=== PATIENT | male | born 1940 | race Caucasian/White ===

== ENCOUNTER 2017-01-06 11:38 | Inpatient (IN) | payer MEDICARE ==
[~2017-01-06] VITALS: Ht 172.7 cm; Wt 82.9 kg
--- NOTE | ~2017-01-06 | ECH ---
Transthoracic Echocardiography Report (TTE) Demographics Patient Name FERNANDA LEDEZMA Date of Study 01/06/2017 Patient Number [id number] Visit Number [id number] Date of 1940 Room Number 309 Accession Number [id number] Gender Male Age 76 year(s) Referring Danica Ruiz Electronic Die Maker Melany Nieto [facility] Physician MD Dalton Sullivan APRN Physician Interpreting Danica Ruiz Customs Agent Physician Supervising Ordering Physician Danica Ruiz MD/MLP Nurse Stress Parquet Floor Layer Conclusions Summary Technically fair exam. The estimated left ventricular ejection fraction is 60-65%. Normal wall motion. Mild left ventricular hypertrophy. The left atrium is moderately dilated by LA volume index measurement. Mild mitral regurgitation by color Doppler. Procedure Type of Study TTE procedure Procedure Date Date: 01/06/2017 Start: 03:22 PM Technical Quality: Fair Indications:Abnormal troponin, Shortness of breath and Atrial fibrillation. Additional Indications:recent knee surgery Appropriate Use Criteria: 9 Height: 66.93 inches Weight: 182.98 pounds BSA: 1.95 m Rhythm: Atrial fibrillation HR: 93 bpm BP: 172/80 mmHg M-Mode/2D Measurements LV Diastolic Dimension: 4.31 cm LV Systolic Dimension: 3.41 cm LV Septum Diastolic: 0.98 cm LV PW Diastolic: 1.14 cm AO Root Dimension: 2.68 cm Cardiac Output: 6.04 l/min LA Dimension: 3.74 cm Cardiac Index: 3.1 l/min*m LA volume index: 47 ml/m LVOT: 1.99 cm RV Base: 3.2 cm LVOT VTI: 20.9 cm RV Mid: 2.3 cm LV Stroke volume: 64.97 ml RV Length: 6.4 cm LV Stroke volume index: 33.32 ml/m TAPSE: 1.6 cm TDI-S': 13 cm/s Doppler Measurements AV Peak Velocity: 1.1 m/s MV Peak E-Wave: 0.83 m/s AV Peak Gradient: 4.84 mmHg MV Peak A-Wave: 0.61 m/s AV Mean Gradient: 4.16 mmHg MV E/A Ratio: 1.35 LVOT Peak Velocity: 1.15 m/s MV P1/2t: 42.8 msec AV Area (Continuity):2.83 cm MV Deceleration Time: 147.4 msec MV Area (PHT): 5.15 cm PV Peak Velocity: 0.98 m/s PV Peak Gradient: 3.88 mmHg RA Area: 17.49 cm Findings Left Ventricle The left ventricle is normal in size . Mild left ventricular hypertrophy. Diastolic function indeterminate due to patient's arrhythmia. Right Ventricle Normal right ventricle structure and function. Left Atrium The left atrium is moderately dilated by LA volume index measurement. Right Atrium Normal right atrial size. Mitral Valve Normal mitral valve structure and function. Mild mitral regurgitation by color Doppler. Aortic Valve The aortic valve is mildly sclerotic. Tricuspid Valve Normal appearing tricuspid valve. Trivial tricuspid regurgitation by color Doppler. Pulmonic Valve Normal pulmonic valve structure and function. Pericardial Effusion No evidence of pericardial effusion. Miscellaneous Visualized portions of the aortic root and ascending aorta appear normal in size. Pleural Effusion No evidence of pleural effusion. Contractility Score LV regional wall motion:(0-Non visualized 1-Normal 2-Hypokinesis 3-Akinesis 4-Dyskinesis 5-Aneurysm) Signature
--- NOTE | ~2017-01-06 | DS ---
ADMIT: 01/06/2017 RM/LOC: 420 [facility] MR#: [id number] [address] [address] DARIEN FERNANDA Sullivan [address] [place] [id number] Discharge Summary SEX: M AGE: 76 : 1940 ADMISSION DATE: 01/06/2017 DISCHARGE DATE: 01/12/2017 ADDENDUM: The patient was not discharged on the due to not being accepted by our inpatient rehab unit. He was thought to have improved too much to need their care. He was evaluated by Physical Therapy and Occupational Therapy on the with plans for [facility] or home with Home Health Care pending the PT/OT home safety evaluation. Aquilino Hoffman MD/ ajf JOB #: [id number] CC: Aquilino Hoffman MD, Attending Physician Aquilino Hoffman MD, Family Physician
--- NOTE | 2017-01-08 15:06 | CO ---
ADMIT: 01/06/2017 RM/LOC: 309 [facility] MR#: [id number] [address] [address] MOODY LEDEZMA [address] [place] [address] Consultation SEX: M AGE: 76 : 1940 DATE OF CONSULTATION: 01/06/2017 ATTENDING PHYSICIAN: Aquilino Hoffman CONSULTING PHYSICIAN: Nicola Mishra MD REASON FOR CONSULT: Elevated cardiac biomarkers. HISTORY OF PRESENT ILLNESS: Moody is a 76-year-old gentleman, who says he has a history of coronary disease with previous stents at the [facility] in 2004. He also has a history of TIAs and is on dual antiplatelet therapy. He just underwent left knee replacement, which was an elective procedure in [place] a week ago today. His said postoperatively he did well the first couple days, but he did become more anemic during that hospitalization. It sounds like he also had some delirium and agitation. She said he was given Haldol during that hospitalization, and when she took him home Thursday, he was "a zombie." There was also some question if he was moving his right side appropriately. Regardless he got home and seemed to be improving slightly, although ongoing confusion and worsening shortness of breath. By this morning, they said he had been walking, but he was so short of breath. He could barely go across the room. They went to the emergency room in [place] and was transferred to [place]. In our emergency room, he was noted to be anemic with a hemoglobin of around 8. His troponin was elevated at 7. His AST and ALT are 600 and 400 respectively. His creatinine was up at 1.8, and it was 1.4 when he left [facility]. His CK is 1111 with an MB of 20 that gives him an index of 1.9. His hemoglobin is only 8.0 today. He is not complaining of any anginal-type chest pain. He complains mostly of shortness of breath. He clearly has some confusion that is persisting. PAST MEDICAL HISTORY: ALLERGIES: I do not know of any allergies. HOME MEDICATIONS: Include: 1. Plavix 75 daily. 2. Pantoprazole 40 daily. 3. Aspirin 81 daily. 4. Vitamin D3. 5. Zoloft 100. 6. Atorvastatin 40 daily. 7. Lisinopril 10 daily. 8. Multivitamin daily. 9. PreserVision vitamin daily. 10.Divalproex 500 daily. 11.Latanoprost eye drops. ILLNESSES: Include hypertension, hyperlipidemia, gastroesophageal reflux disease, history of depression, anxiety, coronary artery disease with ADMIT: 01/06/2017 RM/LOC: 309 [facility] MR#: [id number] [address] [address] [place] [address] Consultation SEX: M AGE: 76 : 1940 percutaneous coronary intervention in 2004. He had a recent detached retina over the past year. He has had prior cataracts and questionable recurrent TIAs. PAST SURGICAL HISTORY: Includes his recent left knee replacement. He has had bilateral knee arthroscopies, left rotator cuff, cataract surgeries, right hand surgery, and surgery for retinal detachment. FAMILY HISTORY: His father had an MA around age 60, a sister who had an MA in her 70s. No family history of diabetes. His mother had colon cancer. No family history of stroke. SOCIAL HISTORY: He continues to smoke and has done so for 65 years. He does not follow a special diet. He drinks caffeine, but no alcohol or illicit drug use. He has almost been 50 years. He has 2 children and several foster children over the years. 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 REVIEW OF SYSTEMS: GENERAL: He tires easily. He has had some recent chills. Denies fever, sweats, rash, or weight loss. EYES: Positive for blurry vision, partial vision loss, and cataracts. Denies double vision, or glaucoma. ENT: Positive for hearing loss. Denies problems with nose, mouth or throat. PULMONARY: Positive for emphysema, chronic cough, snores loudly, wakes more than once a night, and fatigued in the morning. Denies sputum production, asthma, emphysema or bronchitis. GASTROINTESTINAL: Positive for heartburn and reflux. Denies difficulty swallowing. No change in bowel habits. Denies dark or bloody stools. No history of ulcers, hiatal hernia, or gallbladder or liver disease. GENITOURINARY: Denies dysuria, hematuria, nocturia, urinary tract infection, or kidney stones. Denies history of renal insufficiency or failure. MUSCULOSKELETAL: Positive for arthritis, gout, muscle, and joint pains. ENDOCRINE: Denies history of thyroid dysfunction or diabetes. HEMATOLOGIC: Denies history of anemia, easy bruising, or cancer. NEUROLOGIC: Positive for history of TIAs. Denies chronic headaches, dizziness, syncope, stroke, seizures or numbness or tingling. PSYCHIATRIC: Positive for depression and anxiety. PHYSICAL EXAMINATION: VITAL SIGNS: His blood pressure is 147/68, his pulse is 90 and regular, respirations are 18 and somewhat labored. He is afebrile. GENERAL: He is clearly has some confusion. His skin color is poor, but his extremities are warm and dry. He does answer my questions appropriately, but very tangential thought process. EYES: Sclerae are clear. No xanthelasmas. ENT: I cannot hear any carotid bruits over his airway sounds and oxygen. I do not appreciate any JVD. HEART: Distant. It sounds regular. I do not appreciate any significant murmurs, rubs, or gallops. ADMIT: 01/06/2017 RM/LOC: 309 [facility] MR#: [id number] [address] [address] MOODY LEDEZMA [facility] [place] [address] Consultation SEX: M AGE: 76 : 1940 CHEST: There are diffuse wheezes throughout. ABDOMEN: Protuberant. There is no organomegaly noted. Nontender to palpation. EXTREMITIES: His left knee is bandaged. There is no significant edema. Distal pulses are decreased. MUSCULOSKELETAL: He has changes of arthritis in his hands, and his left knee is bandaged. PSYCHIATRIC: He does answer simple questions and greets me appropriately, but he does show evidence of transient confusion. LABORATORY DATA: Sodium is 143, potassium 4.6, his BUN is 31 with a creatinine of 1.8. His alkaline phosphatase is 177. His albumin is only 2.4. AST 614, ALT 399. CK is 1111, MB 20.7, and troponin is 7.3. Hemoglobin is 8.0 with a white count of 7.5 and platelet count 344,000. A CT of the chest did not show any evidence of pulmonary emboli. There are no effusions. There are some mild atelectasis. His liver appeared enlarged on CT scan. A 12-lead EKG shows sinus rhythm, but I do not see any acute ischemic EKG changes. IMPRESSION: 1. Possible acute coronary syndrome/non-ST elevation myocardial infarction. 2. Postoperative day #6 status post total left knee surgery. 3. Acute kidney failure. 4. Chronic obstructive pulmonary disease. 5. Tobacco abuse. 6. History of coronary artery disease with previous percutaneous coronary intervention. 7. Probable delirium. 8. Elevated transaminases consistent with probable shock liver. 9. Acute anemia. 10.History of transient ischemic attack. RECOMMENDATIONS: He could have an acute coronary syndrome with his known disease in the midst of multisystem dysfunction. I am not convinced that he had a cardiac event that caused his shock liver. It sounds like he had a complicated hospitalization at [facility] with some delirium ADMIT: 01/06/2017 RM/LOC: 309 [facility] MR#: [id number] [address] [place] [address] [place] [address] MOODY LEDEZMA [address] [place] [address] Consultation SEX: M AGE: 76 : 1940 requiring antipsychotic therapy. His says that he also had episodes of hypotension, and I wonder if that was not the cause of his multi-system dysfunction in the midst of anemia, which led to his shock liver and acute kidney failure. His CK is also markedly elevated, and interestingly, his index is not consistent with an acute coronary syndrome. I cannot tell for sure but this could all be demand ischemia on his heart as well. We will continue with supportive and medical measures. Unfortunately, he is not an invasive candidate at this time given his anemia and acute kidney failure and his acute illness. We will add beta-radha if okay with his primary. I would continue aspirin and statin therapy, and we will do an echo today to evaluate his LV function. Nicola Mishra MD/ santi JOB #: [id number] CC: Aquilino Hoffman, Attending Physician Aquilino Hoffman, Family Physician
--- NOTE | 2017-01-11 11:42 | HP ---
ADMIT: 01/06/2017 RM/LOC: 309 [facility] MR#: [id number] [address] [address] LEDEZ[address]FERNANDA [address] [place] [address] History and Physical SEX: M AGE: 76 : 1940 CHIEF COMPLAINT: Shortness of breath, and "I wanted to get things straightened out." HISTORY OF PRESENT ILLNESS: The patient is a very pleasant 76-year-old gentleman, he has a past medical history of coronary artery disease, status post PCI, hypertension, hyperlipidemia as well as recent left total knee arthroplasty at [facility] on December 30, presents to [facility] from his home in [place] today with complaints of dyspnea, just not feeling well, nausea he has had for the last 72 hours. Notes had been dealing with a little bit of constipation, just not eating well, and he thought that is probably what made him nauseated. Oral intake has not been great. He has been using some hydrocodone for pain, but otherwise no excessive amounts of Tylenol. Today, he just got short of breath enough that his family brought him into the emergency room. There, he was found to have a troponin of greater than 7 with CKs greater than 1100. He is found to be in acute renal failure with a hemoglobin of 8. The patient notes he is feeling better since he got some oxygen here at the hospital. Notes he was not able to get started with physical therapy due to just not feeling well. In the emergency room, he underwent a CT of the chest that was negative for PE and he is admitted for further evaluation and treatment. The patient notes that since he has been home, he has had a little trouble getting around. He has had some falls at home. He notes no obvious injuries, but does have a mild headache at times with a little bit of tingling in his head. PAST MEDICAL HISTORY: On review of the chart notes: 1. History of carotid disease. 2. History of prior CVA. 3. Osteoarthritis, status post left total knee arthroplasty. 4. History of complex partial seizures. 5. Coronary artery disease, status post PCI. He has had 3 stents in 09/2005 and in 12/2008. 6. Depression/anxiety. 7. Osteoarthritis of the shoulder. 8. GERD. 9. Right hand power saw injury. 10.Hypertension. 11.History of hyponatremia. 12.Chronic low back pain. 13.History of peripheral vascular disease. 14.History of right retinal detachment. 15.History of presbycusis/sensorineural hearing loss. 16.Ongoing tobacco abuse. 17.Status post cataract extraction. 18.History of left rotator cuff repair. 19.Total left shoulder arthroplasty. SOCIAL HISTORY: He is a current smoker, has been for greater than 70 years. ADMIT: 01/06/2017 RM/LOC: 309 [facility] MR#: [id number] [address] [address] [place] [address] History and Physical SEX: M AGE: 76 : 1940 Occasional drinker. Lives with family near [place]. FAMILY HISTORY: Noncontributory. MEDICATIONS: Current home medications include: 1. Eliquis. 2. Aspirin. 3. Protonix. 4. Vitamin D. 5. Sertraline. 6. Atorvastatin. 7. Lisinopril. 8. Multivitamin. 9. PreserVision. 10.Depakote. 11.Latanoprost. 12.GenTeal. ALLERGIES: MENTIONED NO ALLERGIES. REVIEW OF SYSTEMS: As noted above. All systems are reviewed and negative. PHYSICAL EXAMINATION: VITAL SIGNS: 96.8, 94, 25, 147/69, 100% on a couple of liters by nasal cannula. GENERAL: This is an elderly gentleman, he is in no apparent distress. He is awake, he is alert, he is oriented x3. He is cooperative and pleasant. HEENT: As mentioned, head is normocephalic and atraumatic. Mucous membranes are little dry. NECK: Supple. LUNGS: He is coarse really throughout. He has some scattered rhonchi. No wheezes. He is a little diminished at the bases. HEART: Regular. ABDOMEN: Soft, nontender, nondistended. Positive bowel sounds. EXTREMITIES: His left knee incision is healing, looks really good. No obvious effusion, redness, erythema. He has just trace ankle edema. His [id number] and cranial nerves appear intact. I do not sweet pickled fruit maker any focal deficits. He has a laceration from a power saw that is noted on his right thumb that is healing, but otherwise skin appears within normal limits. LABORATORY AND X-RAY DATA: Lab work is reviewed. His blood gas showed a pH 7.37, pCO2 of 33 with a PO2 of 135, hemoglobin was 8. White count 7.5 and 340,000 platelets. Sodium 143, potassium 4.6, BUN is 31, creatinine 1.8. Baseline creatinine closer to 1. His calcium is 8.1. AST 614, ALT 399, alkaline phosphatase 177, total bilirubin 0.7, procalcitonin is 0.18. CK was 1111 with a troponin of 7.34. His EKG was normal sinus rhythm, 97 beats per minute. A CTA of the chest showed no PE, some granulomas were noted, but ADMIT: 01/06/2017 RM/LOC: 309 [facility] MR#: [id number] [address] [address] FERNANDA LEDEZMA [address] [place] [address] History and Physical SEX: M AGE: 76 : 1940 there is a questionable left upper lobe 7.5 mm lesion. ASSESSMENT AND PLAN: 1. Acute coronary syndrome/non ST-segment elevation myocardial infarction. 2. Dyspnea, resolved. 3. Known coronary artery disease, status post percutaneous coronary intervention. 4. Elevated liver tests. 5. Acute renal failure. 6. Hypertension. 7. Hyperlipidemia. 8. Likely postop anemia, heme-negative. 9. Elevated liver tests. 10.Chronic obstructive pulmonary disease. 11.Ongoing tobacco abuse. 12.IV depression. 13.Left upper lobe pulmonary nodule. 14.Falls at home. At this point, the patient is hemodynamically stable. I do think he probably had a cardiac event 72 hours ago when he started feeling poorly. Cardiology seeing the patient, he had an echocardiogram. We will trend his cardiac enzymes. We will continue his beta radha, aspirin, and statin for right now. Given his acute renal failure, I think it is probably his ROSALINA inhibitor plus volume depletion. Does not sound like he was eating or drinking very well. We will plan on IV fluids. We will hold any nephrotoxins. We will check urine electrolytes and make sure he is voiding well. As far as checking some occasional postvoid residuals. As far as his anemia, my guess is that probably he is heme negative that is probably just all postop anemia, but I am going to check some iron studies and B12 on him. As far as his transaminases, most likely it has been hydrocodone plus his chronic medications. We are going to check a valproate level on him. Avoid any hepatotoxins. He certainly does not give any symptoms. He does not have any scleral icterus, so we will see what his ultrasound looks like and trend those enzymes as well. We will get him a nicotine patch. He will need followup of the left upper lobe pulmonary nodule. We will have him seen by PT and OT. Right now, he should be fine continuing Eliquis for DVT prophylaxis, and we will follow him closely here in the ICU. Aquilino Hoffman MD/ santi JOB #: [id number] CC: Aquilino Hoffman, Attending Physician Aquilino Hoffman, Family Physician
[2017-01-13] MEDS ORDERED: LIPITOR DPS40 MG PO (12:44)
[2017-01-13] MEDS ORDERED: ASPIRIN EC81 MG PO (12:44)
[2017-01-13] MEDS ORDERED: ZOLOFT DPS100 MG PO (12:44)
[2017-01-13] MEDS ORDERED: ELIQUIS2.5 MG PO (12:44)
[2017-01-13] MEDS ORDERED: GENTEAL GEL DRO15 ML OU (12:45)
[2017-01-13] MEDS ORDERED: LASIX DPS40 MG PO (12:45)
[2017-01-13] MEDS ORDERED: POTASSIUM CHLO20 ME2 PO (12:45)
[2017-01-13] MEDS ORDERED: XALATAN2.5 ML OU (12:45)
[2017-01-13] MEDS ORDERED: LOPRESSOR DPS50 MG PO (12:46)
[2017-01-13] MEDS ORDERED: MUCINEX600 MG PO (12:46)
[2017-01-13] MEDS ORDERED: NORVASC5 MG PO (12:46)
[2017-01-13] MEDS ORDERED: MAALOX DPS30 ML PO (12:47)
[2017-01-13] MEDS ORDERED: DUONEB DPS3 ML IH (12:47)
[2017-01-13] MEDS ORDERED: HABITROL DPS7 MG TD (12:47)
[2017-01-13] MEDS ORDERED: SURFAK DPS240 MG PO (12:48)
[2017-01-13] MEDS ORDERED: NITROSTAT0.4 MG SL (12:48)
--- NOTE | 2017-01-16 08:27 | DS ---
ADMIT: 01/06/2017 RM/LOC: 420 [facility] MR#: [id number] [address] [address] LEDEZMAFERNANDA Laurie [address] [place] [address] Discharge Summary SEX: M AGE: 76 : 1940 ADMISSION DATE: 01/06/2017 DISCHARGE DATE: 01/12/2017 DISCHARGE DIAGNOSES: 1. Non ST-segment elevation IN (myocardial infarction). 2. Coronary artery disease, by history. 3. Atrial fibrillation with rapid ventricular response, resolved. 4. Chronic anticoagulation with Eliquis. 5. Acute renal failure, resolved. 6. Acute diastolic heart failure, resolved. 7. Elevated liver tests/transaminitis likely secondary to medications plus questionable shock liver. 8. COPD (chronic obstructive pulmonary disease). 9. Postop anemia. 10.Ongoing tobacco abuse. 11.Osteoarthritis, status post left total knee arthroplasty at outside facility on December 30. 12.Hypokalemia, resolved. 13.Hypomagnesemia, resolved. 14.Left upper lobe pulmonary nodule 7.5 mm in need of followup in March/April of 2017. 15.Mood disorder, anxiety plus or minus bipolar disorder. CONSULTATIONS: Cardiology. PROCEDURES: None. REASON FOR ADMISSION: A 68-year-old gentleman with extensive past medical history, presents to [facility] emergency room with complaints of 72 hours of dyspnea and just not feeling well, nausea with poor oral intake. He just had had recent knee replacement. In the emergency room he was noted to have a troponin of 7 with CKs greater than 1000. He was also noted to be in acute renal failure and dyspneic. He was admitted for further evaluation and treatment. For complete details, please see H and P dictated on the day of admission. HOSPITAL COURSE: At the time of admission, the patient was placed in the ICU. Cardiology was consulted. He was thought to be prerenal. He was also noted to be anemic. Plans for medical management were noted. His transaminases were noted to be elevated. This was thought to be secondary to some medications and shock liver. We stopped any hepatotoxins. He underwent an ultrasound that did not show us any intrahepatic ductal dilatation. He was placed on a nicotine patch. Within 24 hours of getting hospitalized he went into atrial fibrillation with RVR, was started on some amiodarone and then secondary to his LFTs that was stopped and it was just changed over to beta radha. He had been on Eliquis for DVT prophylaxis as well. He was noted to be heme negative. With his anemia, his hemoglobin did get down to 7. With his acute renal failure and issues with cardiac ischemia we did transfuse him a unit of packed red cells. Plans were made for medical management, but his ADMIT: 01/06/2017 RM/LOC: 420 [facility] MR#: [id number] [address] [address] [place] [address] Discharge Summary SEX: M AGE: 76 : 1940 statin was held. He was continued on aspirin and a beta radha. With his LFTs up we also stopped his Depakote which he had used as mood stabilizer in the past. After the packed red cells and a little bit of IV fluid, his creatinine improved but he did become a little fluid overloaded and needed gentle diuretics which for what was thought to be diastolic heart failure exacerbation. He diuresed well and aggressive pulmonary toilet was taking place especially given his underlying COPD. He had no pneumonias noted. His CT of the chest that he underwent showed no PE and he was titrated to room air. His transaminases came down nicely. His alkaline phosphatase and his total bilirubin were normal but his AST at discharge was 160 and ALT of just around 300 when both of these numbers had been over 700 at admission. He was transiently hypokalemic and hypomagnesemic and those were replaced during his hospital stay. He was seen by PT and OT. As mentioned, his hemoglobin was stable and he was thought to be ready for discharge to IRU on 01/11/2017. His discharge medications are found on his discharge medication list. His diet will be cardiac as tolerated. His activity will be per PT or OT. He will have follow up with his primary care providers after release from rehab. He will have follow up with Cardiology scheduled as well for an outpatient stress test. Aquilino Hoffman MD/ vdg JOB #: [id number] CC: Aquilino Hoffman MD, Attending Physician Aquilino Hoffman MD, Family Physician [facility]
--- NOTE | 2017-01-23 23:49 | ER ---
ADMIT: 01/06/2017 RM/LOC: [address] [facility] MR#: [id number] [id number] [place], [place] [id number] [address] [place] [address] Emergency Room Report SEX: M AGE: 76 : 1940 DATE: 01/06/2017 CHIEF COMPLAINT: Short of breath. HISTORY OF PRESENT ILLNESS: The patient is a 76-year-old gentleman, who had a left total knee replacement done on the 30 of December at [facility]. He was discharged last Thursday, which was 3 days postoperative. Since then, he had been in the [facility] for complaints of shortness of breath 3 days ago and then presented back there today with continued worsening short of breath symptoms. The physician pathologist assistant in [place] believed that the patient needed higher level of care and wanted him transferred to our facility for further workup. The patient's primary complaint to me is shortness of breath. He states he has had some chest discomfort earlier, but is currently denying any chest pain. Denies any fevers, chills, nausea, or vomiting. Has had diarrhea for the past couple of days, but denies any blood in the stools. REVIEW OF SYSTEMS: Ten-point review of systems is done and otherwise negative except as in HPI. PAST MEDICAL HISTORY: Significant for coronary artery disease with stents, hypertension, hyperlipidemia, COPD, and GERD. MEDICATIONS: See nurse's note. He has been on Plavix in the past, but has been off it since his knee surgery. ALLERGIES: PENICILLIN. SOCIAL HISTORY: The patient admits to smoking his entire adult life, but denies any drug or alcohol use at this time. PHYSICAL EXAMINATION: GENERAL: The patient is alert, is not in distress. HEENT: Head is atraumatic and normocephalic. Pupils are equally round and reactive to light. SKIN: He is somewhat jaundiced. Airway is patent. HEART: Tachycardic. LUNGS: He is tachypneic, and he does have some decreased breath sounds in the bases. ABDOMEN: Soft, nontender. The patient has no pedal edema noted, but he does have compression stockings on. He does have a well-healing postoperative scar/wound on his left knee, which does not appear infected, and there is no significant joint effusion I can appreciate. He does have good pulses in all 4 extremities. LABORATORY DATA: Hemoglobin of 8.0, CO2 of 20, BUN of 31, glucose 129, creatinine of 1.8, calcium of 8.1, lactic acid is 6.3, AST of 614, ALT of 399, CK 1111, CK-MB 20.7, and troponin 7.34. CT angio of the chest shows no obvious PE. EKG shows sinus rhythm, rate of 97. I do not see any acute signs of ST-elevation or SD. Hemoccult is negative. ADMIT: 01/06/2017 RM/LOC: [address] [facility] MR#: [id number] [facility] [address] [address] [place] [address] Emergency Room Report SEX: M AGE: 76 : 1940 EMERGENCY DEPARTMENT COURSE: The patient arrived, he was short of breath. We put the patient on supplemental oxygen. Workup here shows he was anemic, and I was able to obtain old records from his hospitalization last week, which show that preoperatively on December 23, he was 13.6, and on the , he was 10.7. At discharge day from [facility], he was 8.2. His liver enzymes were normal preoperatively and are elevated today. At this point, the patient does not appear septic. He is not having a fever and does not appear infectious, but I am concerned that he has had cardiac event, which would result in his acute renal insufficiency/failure. He has elevated liver enzymes with poor perfusion to his liver and lactic acidosis. He has gotten fluid hydration started in the Emergency Department. We did start the 30 mL/kg fluid bolus. He was also given Solu-Medrol in the Emergency Department for his underlying COPD. I spoke to Dr. Hoffman, who will be admitting the patient under [facility] as the patient normally doctors in [place]. I have also spoke to Dr. Mishra from Cardiology, who will be following the patient. The patient is admitted in critical condition with diagnoses of: 1. Acute renal failure. 2. Chronic obstructive pulmonary disease exacerbation. 3. Elevated troponin. 4. Acute blood loss anemia. 5. Elevated liver enzymes. 6. Shortness of breath. 7. Lactic acidosis. One hour of critical care time was spent on this patient. Adi Crenshaw MD/ snati JOB #: [id number] CC: Aquilino Hoffman MD, Attending Physician Aquilino Hoffman MD, Family Physician
== END 2017-01-12 15:10 | disposition home health service (06) | DRG 280 ==
LOC: ER 11:38 → 3ICU 13:45 → 4PCU 01-09 16:20
PROVIDERS: ADMIT Internal Medicine
PROC: 30233N1 Transfusion of Nonautologous Red Blood Cells into Peripheral Vein, Percutaneous Approach (ICD-10-PCS; principal; 2017-01-07)
DX: I21.4 Non-ST elevation (NSTEMI) myocardial infarction (principal); I50.31 Acute diastolic (congestive) heart failure; K72.00 Acute and subacute hepatic failure without coma; N17.9 Acute kidney failure, unspecified; E87.2 Acidosis; J96.10 Chronic respiratory failure, unspecified whether with hypoxia or hypercapnia; G40.209 Localization-related (focal) (partial) symptomatic epilepsy and epileptic syndromes with complex partial seizures, not intractable, without status epilepticus; D62 Acute posthemorrhagic anemia; I48.91 Unspecified atrial fibrillation; I10 Essential (primary) hypertension; I25.10 Atherosclerotic heart disease of native coronary artery without angina pectoris; H90.5 Unspecified sensorineural hearing loss; R19.7 Diarrhea, unspecified; E87.70 Fluid overload, unspecified; E87.6 Hypokalemia; E83.42 Hypomagnesemia; E78.5 Hyperlipidemia, unspecified; K21.9 Gastro-esophageal reflux disease without esophagitis; H54.7 Unspecified visual loss; R91.1 Solitary pulmonary nodule; J44.9 Chronic obstructive pulmonary disease, unspecified; F39 Unspecified mood [affective] disorder; F32.9 Major depressive disorder, single episode, unspecified; F41.9 Anxiety disorder, unspecified; M54.5 Low back pain; G89.29 Other chronic pain; I73.9 Peripheral vascular disease, unspecified; F17.210 Nicotine dependence, cigarettes, uncomplicated; Z86.73 Personal history of transient ischemic attack (TIA), and cerebral infarction without residual deficits; Z96.652 Presence of left artificial knee joint; Z91.81 History of falling; Z98.890 Other specified postprocedural states; Z95.5 Presence of coronary angioplasty implant and graft; Z96.612 Presence of left artificial shoulder joint; Z82.49 Family history of ischemic heart disease and other diseases of the circulatory system